=== PATIENT | female | born 1940 | race Caucasian/White ===

== ENCOUNTER 2021-03-29 19:21 | Emergency (ER) | payer MEDICARE ==
[~2021-03-29] VITALS: Ht 160 cm; Wt 86.2 kg
--- OUTSIDE RECORDS SUMMARY | 2021-03-29 19:24 | XMS ---
PreManage Notification: DUSTIN LUNDBERG [employer] Events No recent Security Events currently on file CRITERIA MET - PDMP CARE PROVIDERS RITIKA DURON [facility]/Center: [facility] PHONE: [phone] Dee Dee has no Care Guidelines for this patient. EShakeel VISIT COUNT (12 MO.) 1 GIULIA Guerra TOTAL 1 NOTE: Visits indicate total known visits. ED/UCC VISIT TRACKING (12 MO.) 03/29/2021 19:22 GIULIA [place] TYPE: Emergency COMPLAINT: - FALL INPATIENT VISIT TRACKING (12 MO.) No inpatient visits to display in this time frame [email or web address]
[2021-03-29] MEDS ORDERED: OXYCODONE-ACET1 EAC1 PO (19:48)
[2021-03-29] MEDS ORDERED: LEVOTHYROXINE125 MC1 PO (19:48)
[2021-03-29] MEDS ORDERED: ZESTRIL5 MG PO (19:48)
[2021-03-29] MEDS ORDERED: CITALOPRAM HBR20 MG PO (19:49)
[2021-03-29] MEDS ORDERED: METFORMIN HCL500 MG PO (19:50)
[2021-03-29] MEDS ORDERED: PROTONIX20 MG PO (19:50)
[2021-03-29] MEDS ORDERED: PERCOCET 5-3251 EACH PO (23:03)
== END 2021-03-29 23:32 | disposition home or self-care (01) ==
LOC: ED 19:21
DX: S22.059A Unspecified fracture of T5-T6 vertebra, initial encounter for closed fracture (principal); E11.9 Type 2 diabetes mellitus without complications; I10 Essential (primary) hypertension; E05.90 Thyrotoxicosis, unspecified without thyrotoxic crisis or storm; Z88.0 Allergy status to penicillin; Z88.2 Allergy status to sulfonamides; Z79.899 Other long term (current) drug therapy; Z79.84 Long term (current) use of oral hypoglycemic drugs
CPT/HCPCS: 70450; 71046; 99284-25